=== PATIENT | female | born 1975 | race Caucasian/White ===

== ENCOUNTER 2022-08-06 15:44 | Emergency (ER) | payer OTHER ==
[2022-08-06 16:57] LABS: BASOPHILS % (AUTO) 0.4 % (0.0-5.0); EOSINOPHILS % (AUTO) 3.2 % (0.0-8.0); HEMATOCRIT 33.5 % (36-48); LYMPHOCYTES % (AUTO) 41.5 % (21.0-51.0); MEAN CORPUSCULAR HEMOGLOBIN 31.4 pg (27.0-33.0); MEAN CORPUSCULAR HGB CONC 33.1 g/dL (32.0-36.0); MEAN CORPUSCULAR VOLUME 94.9 fL (79-99); MONOCYTES % (AUTO) 14.5 % (3.0-13.0); PLATELET COUNT (AUTO) 215 K/uL (130-400); RED BLOOD CELL COUNT(AUTO) 3.53 MIL/uL (4.00-5.50); RED CELL DISTRIBUTION WIDTH 14.9 % (11.0-15.5); WHITE BLOOD COUNT (AUTO) 4.7 K/uL (4.8-10.8)
[2022-08-06] MEDS ORDERED: KETOROLAC 15MG/ML VIAL (15MG/ML) IV ONE (17:00)
[2022-08-06] MEDS ORDERED: 0.9%NACL 1000ML 1,000 ML IV ONE (17:00)
[2022-08-06 17:17] LABS: ALANINE AMINOTRANSFERASE 50 U/L (12-78); ALBUMIN 3.2 g/dL (3.5-5.0); ASPARTATE AMINOTRANSFERASE 108 U/L (10-37); CARBON DIOXIDE 24 mmol/L (21-32); CHLORIDE 102 mmol/L (101-111); CREATININE 0.9 mg/dL (0.5-1.5); GLOMERULAR FILTR. RATE CALC 71 mL/min (>60); GLUCOSE,RANDOM 125 mg/dL (70-105); SALICYLATE 5.5 mg/dL (2.8-20.0); SODIUM SERUM 140 mmol/L (136-145); TOTAL PROTEIN, SERUM 7.6 g/dL (6.0-8.3); UREA NITROGEN, BLOOD 6 mg/dL (7-18)
[2022-08-06 17:19] LABS: ACETAMINOPHEN < 1 mcg/mL (10-30); ALCOHOL, BLOOD 249 mg/dL (0-10); POTASSIUM 2.4 mmol/L (3.5-5.1)
[2022-08-06] MEDS ORDERED: POTASSIUM BICARB/CIT AC 25 MEQ TABLET.EFF PO ONE ×2 (18:00→19:30)
[2022-08-06 19:30] LABS: APPEARANCE,URINE CLEAR (CLEAR); BILIRUBIN,URINE NEGATIVE (NEGATIVE); COLOR,URINE COLORLESS (YELLOW); GLUCOSE, URINE (UA) NEGATIVE (NEGATIVE); KETONES,URINE NEGATIVE (NEGATIVE); LEUKOCYTE ESTERASE ,URINE 25 Leu/uL (NEGATIVE); NITRATE,URINE NEGATIVE (NEGATIVE); PROTEIN,URINE NEGATIVE (NEGATIVE); UROBILINOGEN,URINE 0.2 mg/dL (0.2-1.0)
[2022-08-06 19:31] LABS: HCG,QUALITATIVE URINE NEGATIVE (NEGATIVE)
[2022-08-06 19:34] LABS: AMPHET/METH SCREEN,URINE NEGATIVE (NEGATIVE); BARBITURATE SCREEN, URINE NEGATIVE (NEGATIVE); BENZODIAZEPINES SCREEN,URINE NEGATIVE (NEGATIVE); CANNABINOID SCREEN,URINE NEGATIVE (NEGATIVE); COCAINE SCREEN,URINE POSITIVE (NEGATIVE); OPIATE SCREEN,URINE NEGATIVE (NEGATIVE); PHENCYCLIDINE SCREEN,URINE NEGATIVE (NEGATIVE)
[2022-08-06 19:35] LABS: MUCUS,URINE RARE LPF (None Seen); RBC,URINE 0-1 /HPF (0-1); SQUAMOUS EPITHELIAL CELL,UR RARE /HPF (0-2); WBC,URINE 0-1 /HPF (0-1)
[2022-08-06 21:53] LABS: CREATININE 0.8 mg/dL (0.5-1.5); POTASSIUM 3.5 mmol/L (3.5-5.1)
[2022-08-07] MEDS ORDERED: ACETAMINOPHEN 500 MG TABLET PO ONE (01:00)
[2022-08-07 09:08] VITALS: BP 122/65
== END 2022-08-07 09:12 | disposition home or self-care (01) ==
LOC: EDH 15:44
DX: S00.12XA Contusion of left eyelid and periocular area, initial encounter (principal); F32.A Depression, unspecified; Z20.822 Contact with and (suspected) exposure to COVID-19; Y08.89XA Assault by other specified means, initial encounter; Y93.89 Activity, other specified; Y92.89 Other specified places as the place of occurrence of the external cause; Y99.8 Other external cause status
CPT/HCPCS: 99284; 70450; 96374; 87635; 80053; 80305; 85025; 81025; 36415 ×2; 72125; 70486; 81001; 80048; G0481; C9803; J7030; J1885

== ENCOUNTER 2024-08-18 01:15 | Emergency (ER) | payer SELFPAY ==
[2024-08-18] MEDS: ketOROlac 15MG/ML VIAL (15MG/ML) IV STA (01:53)
[2024-08-18] MEDS: DiphenhydrAMINE HCL 50 MG/ML VIAL IV STA (01:53)
[2024-08-18] MEDS: metoCLOPRAmide 10 MG/2 ML VIAL IVP STA (01:53)
[2024-08-18] MEDS: 0.9%NACL 1000ML 1,000 ML IV STA (01:54)
[2024-08-18 02:20] LABS: INFLUENZA TYPE A Negative For Type A (NEGATIVE); INFLUENZA TYPE B Negative For Type B (NEGATIVE)
[2024-08-18 02:21] LABS: COVID19 (SARS ANTIGEN RAPID) PRESUMPTIVE NEGATIVE (NEGATIVE)
--- NOTE | 2024-08-18 02:32 | ERN ---
ED Note History of Present Illness Stated Complaint: HEADACHE Chief Complaint: Headache Time Seen by MD: 01:16 Time Seen by Midlevel: 01:20 Dictation: 49-year-old female history hypertension coming in complaining of a headache cough and congestion since this morning. Patient states her headache feels like a migraine states that is the light bothers her. Last Tylenol was 6 hours ago. No other complaints at this time Allergies: Coded Allergies: No Known Allergies (Unverified Allergy, Unknown, 08/06/22) Past Medical History Past Medical History: Bipolar, Depression, Schizophrenia Surgical History: None Review of System Dictation Constitutional: Negative for fever,chills, and weight loss Eyes: Negative for injury, pain,redness, and discharge ENT: Negative for injury,pain or swelling Cardiovascular: Negative for chest pain, palpitations, and edema Respiratory: Negative for shortness of breath, cough, and wheezing, complaining of congestion Abdomen/GI: Negative for abdominal pain, nausea, vomiting, diarrhea, and cons tipation Back: Negative for injury and pain : Negative for injury, bleeding and discharge MS/Extremity: Negative for injury and deformity Skin: Negative for rash, and discoloration Neuro: Positive for headache, no weakness, no numbness, no tingling, and no seizure Psych: Negative for suicide ideation, homicidal ideation, and hallucinations Review of Systems: was completed Initial Vital Sign VS Vital Signs Date Time Temp Pulse Resp B/P (MAP) Pulse Ox O2 Delivery O2 Flow Rate FiO2 08/18/24 01:16 98.1 92 18 145/98 98 Room Air 0 08/18/24 01:19 21 Physical Exam Dictation General: awake, alert, NAD Head/Face: Normocephalic, atraumatic Eyes: PERRL, EOMI, vision at baseline ENT: oral cavity clear, TMs clear, no signs of infection Neck: Trachea midline, supple, no nuchal rigidity Cardiovascular: RRR, normal S1/S2, No MRGs, no JVD Respiratory: CTAB, no respiratory distress, No rales or wheezes Abdomen: Soft, non-tender, non-distended, normal bowel sounds, no guarding or rebound. Skin: Warm, dry, normal turgor, no rash MS/Extremity: Pulses equal, no cyanosis, neurovascular intact, FROM Neuro: COAx4, GCS 15, strength 5/5, CN 2-12 intact, normal cerebellar exam, normal gait, Psych: Normal behavior, mood, and affect normal Results (Laboratory/Radiology) Laboratory/Radiology Laboratory Tests Test 08/18/24 01:50 Influenza Type A Antigen Negative For Type A Influenza Type B Antigen Negative For Type B SARS-CoV-2 Antigen (Rapid) PRESUMPTIVE NEGATIVE ED Course ED Course Orders Procedure Category Date Status Time Covid19 (Sars Antigen LAB 08/18/24 Complete Rapid) 01:40 Influenza Type A & B, LAB 08/18/24 Complete Rapid 01:40 0.9%Nacl 1000ml (Ns PHA 08/18/24 In Process 1000ml) 01:40 Metoclopramide 10 PHA 08/18/24 Complete Mg/2 Ml Vial (Reglan 1 01:40 Ketorolac PHA 08/18/24 Complete Tromethamine 15mg/Ml 01:40 Diphenhydramine Hcl PHA 08/18/24 Complete (Benadryl Inj) 01:40 Current Medications Medications (Trade) Dose Ordered Sig/Jeanna Route PRN Reason Start Time Stop Time Status Last Admin Dose Admin Diphenhydramine HCl (BENAdryl INJ) 25 mg ONCE STAT IV 08/18/24 01:40 08/18/24 01:41 DC 08/18/24 01:53 Ketorolac Tromethamine (toRADol) 15 mg ONCE STAT IV 08/18/24 01:40 08/18/24 01:41 DC 08/18/24 01:53 Metoclopramide HCl (regLAN 10MG IV) 10 mg ONCE STAT IVP 08/18/24 01:40 08/18/24 01:41 DC 08/18/24 01:53 Sodium Chloride 1,000 ml @ 100 mls/hr Q10H STAT IV 08/18/24 01:40 08/18/24 11:39 08/18/24 01:54 Vital Signs Date Time Temp Pulse Resp B/P (MAP) Pulse Ox O2 Delivery O2 Flow Rate FiO2 08/18/24 01:30 98.4 78 18 135/65 98 Room Air* 0 08/18/24 01:19 98.1 92 18 145/98 98 Room Air* 0 08/18/24 01:16 98.1 92 18 145/98 98 Room Air 0 Medical Decision Making MDM MDM: 49-year-old female history hypertension coming in complaining of a headache cough and congestion since this morning. Patient states her headache feels like a migraine states that is the light bothers her. Last Tylenol was 6 hours ago. No other complaints at this time on physical exam patient has clear bilateral lung sounds, abdomen is soft and nondistended, no tenderness on palpation. No neurological deficits, no nausea, vomiting, numbness, tingling, unilateral weakness. Serology negative for COVID and flu. States it feels better after pain medication. Educated patient to follow up with a PCP in 1-2 days and to return to the ER if symptoms worsen. She can take Tylenol or Motrin [id number] for pain management. She verbalized understanding, answered all questions. Differentials: Influenza, COVID, migraine, tension headache Rationale: Tests considered and ordered secondary to shared decision making include: Previous outside records reviewed: Old ER visits. Risk of complication and/or morbidity or mortality of patient management: None Medications-Per medication reconciliation Need for hospitalization: Patient does not meet criteria for hospitalization. Need for emergency major/minor surgery: No There are no social concerns with this patient. Prescription drug management Prescriptions will include symptomatic care Patient's prior external medical records from other ER visits were reviewed by me as indicated. Prior testing and results from previous visits were reviewed. Prior tests were taken into account with medical decision making and resource utilization, independent historian/historians were used to obtain complete medical history. I independently interpreted the test that were performed, results were reviewed by me and considered findings on radiology if ordered. Medical management and examination interpretation discussions were had by me with other qualified healthcare professionals as indicated for the patient's care. DX & DISP Disposition: Discharge Departure Impression: Primary Impression: Viral syndrome Additional Impression: Head ache Condition: Stable Additional Instructions: You can take Tylenol or Motrin [id number] for pain management. Follow up with the PCP in 1-2 days. Referrals: SELF,REFERRAL (PCP) Time of Disposition: 02:30 I have reviewed the case, and I agree with, Diagnosis and Plan LIYA EDEN NP Aug 18, 2024 02:32
[2024-08-18 02:39] VITALS: BP 122/72; PULSE 80; RESP 18; TEMP 98.5; O2SAT 97
== END 2024-08-18 02:40 | disposition home or self-care (01) ==
LOC: EDH 01:15
DX: B34.9 Viral infection, unspecified (principal); R51.9 Headache, unspecified; F20.9 Schizophrenia, unspecified; F32.A Depression, unspecified; Z20.822 Contact with and (suspected) exposure to COVID-19
CPT/HCPCS: 99284; 96374; 96375; 96361; 87426; 87804 ×2; J1200; J7030; J2765; J1885